=== PATIENT | male | born 1990 | race American Indian/Alaskan Native ===

== ENCOUNTER 2020-07-23 16:58 | Emergency (ER) | payer SELFPAY ==
[2020-07-23 17:44] VITALS: BP 136/77
--- NOTE | 2020-07-23 18:52 | Emergency Department Report ---
ED Abdominal Pain HPI - General Chief Complaint: Nausea/Vomiting/Diarrhea Stated Complaint: PUI COVID PUI?: No Time Seen by Provider: 07/23/20 18:42 Source: patient, EMS Mode of arrival: Ambulatory Limitations: No Limitations - History of Present Illness Initial Comments: Patient is a 30-year-old -Honduran male who comes to the ER via [facility] with a 2-day history of nausea vomiting and diarrhea. He endorses [employer]. Patient states that he has not had a cough. He states that he has had chills but no fever. He does not have a fever on arrival. Patient does not have tachycardia or hypotension. Patient states that he is on no home medications daily. Patient states he is on disability due to chronic left lower extremity pain secondary to surgeries when he was younger. Patient smokes and admits to marijuana use. He states that the marijuana has not helped his nausea and vomiting. Patient denies any history of diabetes, gastroparesis or other GI disease. He denies any recent exposure to COVID-19. Although patient is complaining of nausea and vomiting on arrival he is asking for water. When the nurse told him he cannot have water he was found drinking from the sink. Patient states his primary care doctor is at [facility]. We have no prior records for patient. -: Sudden, days(s) Location: diffuse Migration to: no migration Quality: cramping Consistency: constant Improves With: nothing Worsens With: nothing Associated Symptoms: nausea, vomiting, diarrhea, chills. denies: fever, constipation, dysuria, hematemesis, hematochezia, melena, hematuria, anorexia, syncope - Related Data Previous Rx's Medication Instructions Recorded Last Taken Type Ondansetron [Zofran Odt] 4 mg PO Q8HR PRN #10 tab.rapdis 07/23/20 Unknown Rx Allergies Allergy/AdvReac Type Severity Reaction Status Date / Time No Known Allergies Allergy Unverified 07/23/20 17:44 ED Review of Systems ROS: Stated complaint: PUI COVID Other details as noted in HPI Comment: All other systems reviewed and negative ED Past Medical Hx - Past Medical History Previous Medical History?: No - Surgical History Past Surgical History?: No - Family History Family history: no significant - Social History Smoking Status: Current Every Day Smoker Substance Use Type: Alcohol, Marijuana, Other - Medications Home Medications: Home Medications Medication Instructions Recorded Confirmed Last Taken Type Ondansetron [Zofran Odt] 4 mg PO Q8HR PRN #10 tab.rapdis 07/23/20 Unknown Rx ED Physical Exam - General Limitations: No Limitations General appearance: alert, in no apparent distress - Head Head exam: Present: atraumatic, normocephalic - Eye Eye exam: Present: normal appearance - ENT ENT exam: Present: mucous membranes moist - Neck Neck exam: Present: normal inspection - Respiratory Respiratory exam: Present: normal lung sounds bilaterally. Absent: respiratory distress - Cardiovascular Cardiovascular Exam: Present: regular rate, normal rhythm. Absent: systolic murmur, diastolic murmur, rubs, gallop - GI/Abdominal GI/Abdominal exam: Present: soft, normal bowel sounds - Rectal Rectal exam: Present: deferred - Extremities Exam Extremities exam: Present: normal inspection - Back Exam Back exam: Present: normal inspection - Neurological Exam Neurological exam: Present: alert, oriented X3 - Psychiatric Psychiatric exam: Present: normal affect, normal mood - Skin Skin exam: Present: warm, dry, intact, normal color. Absent: rash ED Course Vital Signs 07/23/20 17:41 Temperature 97.8 F Pulse Rate 64 Respiratory 18 Rate Blood Pressure 136/77 O2 Sat by Pulse 100 Oximetry - Reevaluation(s) Reevaluation #1: 07/23/20 22:56 Patient appears stronger on clinical exam. However he is still orthostatic on blood pressure evaluation and heart rate recheck. Therefore he is being given another l of normal saline. Patient is taking p.o. Reevaluation #2: 07/24/20 00:07 on reexam pt reports feeling better no n/v/d taking po VS improved ambulatory without complaint. asking to go home. ED Medical Decision Making - Lab Data Result diagrams: 07/23/20 18:54 07/23/20 18:54 - Radiology Data Radiology results: report reviewed, image reviewed interpreted by me: rubio bergeron - Medical Decision Making Vital Signs 07/23/20 17:41 Temperature 97.8 F Pulse Rate 64 Respiratory 18 Rate Blood Pressure 136/77 O2 Sat by Pulse 100 Oximetry Lab Results 07/23/20 07/23/20 07/23/20 Range/Units 18:54 18:54 20:12 WBC 13.3 H (4.5-11.0) K/mm3 RBC 4.80 (3.65-5.03) M/mm3 Hgb 13.8 (11.8-15.2) gm/dl Hct 42.9 (35.5-45.6) % MCV 89 (84-94) fl MCH 29 (28-32) pg MCHC 32 (32-34) % RDW 14.5 (13.2-15.2) % Plt Count 285 (140-440) K/mm3 Add Manual Diff Complete Total Counted 100 Seg Neuts % (Manual) 92.0 H (40.0-70.0) % Band Neutrophils % 0 % Lymphocytes % (Manual) 4.0 L (13.4-35.0) % Reactive Lymphs % (Man) 0 % Monocytes % (Manual) 4.0 (0.0-7.3) % Eosinophils % (Manual) 0 (0.0-4.3) % Basophils % (Manual) 0 (0.0-1.8) % Metamyelocytes % 0 % Myelocytes % 0 % Promyelocytes % 0 % Blast Cells % 0 % Nucleated RBC % Not Reportable Seg Neutrophils # Man 12.2 H (1.8-7.7) K/mm3 Band Neutrophils # 0.0 K/mm3 Lymphocytes # (Manual) 0.5 L (1.2-5.4) K/mm3 Abs React Lymphs (Man) 0.0 K/mm3 Monocytes # (Manual) 0.5 (0.0-0.8) K/mm3 Eosinophils # (Manual) 0.0 (0.0-0.4) K/mm3 Basophils # (Manual) 0.0 (0.0-0.1) K/mm3 Metamyelocytes # 0.0 K/mm3 Myelocytes # 0.0 K/mm3 Promyelocytes # 0.0 K/mm3 Blast Cells # 0.0 K/mm3 WBC Morphology Not Reportable Hypersegmented Neuts Not Reportable Hyposegmented Neuts Not Reportable Hypogranular Neuts Not Reportable Smudge Cells Not Reportable Toxic Granulation Not Reportable Toxic Vacuolation Not Reportable Dohle Bodies Not Reportable Pelger-Huet Anomaly Not Reportable Anastacio Rods Not Reportable Platelet Estimate Not Reportable Clumped Platelets Not Reportable Plt Clumps, EDTA Not Reportable Large Platelets Not Reportable Giant Platelets Not Reportable Platelet Satelliting Not Reportable Plt Morphology Comment Not Reportable RBC Morphology Not Reportable Dimorphic RBCs Not Reportable Polychromasia Not Reportable Hypochromasia Not Reportable Poikilocytosis Not Reportable Anisocytosis Rare Microcytosis Rare Macrocytosis Not Reportable Spherocytes Not Reportable Pappenheimer Bodies Not Reportable Sickle Cells Not Reportable Target Cells Not Reportable Tear Drop Cells Not Reportable Ovalocytes Not Reportable Helmet Cells Not Reportable [place] Bodies Not Reportable Laura Rings Not Reportable Lacey Cells Not Reportable Bite Cells Not Reportable Crenated Cell Not Reportable Elliptocytes 1+ Acanthocytes (Spur) Not Reportable Rouleaux Not Reportable Hemoglobin C Crystals Not Reportable Schistocytes Not Reportable Malaria parasites Not Reportable Kenny Bodies Not Reportable Hem Pathologist Commnt No Sodium 141 (137-145) mmol/L Potassium 4.3 (3.6-5.0) mmol/L Chloride 105.0 (98-107) mmol/L Carbon Dioxide 21 L (22-30) mmol/L Anion Gap 19 mmol/L BUN 8 L (9-20) mg/dL Creatinine 0.9 (0.8-1.3) mg/dL Estimated GFR > 60 ml/min BUN/Creatinine Ratio 9 % Glucose 115 H (75-100) mg/dL Calcium 11.1 H (8.4-10.2) mg/dL Total Bilirubin 0.90 (0.1-1.2) mg/dL AST 24 (5-40) units/L ALT 13 (7-56) units/L Alkaline Phosphatase 110 (35-129) units/L Total Protein 8.0 (6.3-8.2) g/dL Albumin 4.9 (3.9-5) g/dL Albumin/Globulin Ratio 1.6 % Urine Color Yellow (Yellow) Urine Turbidity Clear (Clear) Urine pH 9.0 H (5.0-7.0) Ur Specific [place] 1.027 (1.003-1.030) Urine Protein >500 (Negative) mg/dL Urine Glucose (UA) Neg (Negative) mg/dL Urine Ketones 80 (Negative) mg/dL Urine Blood Neg (Negative) Urine Nitrite Neg (Negative) Urine Bilirubin Neg (Negative) Urine Urobilinogen 2.0 (<2.0) mg/dL Ur Leukocyte Esterase Neg (Negative) Urine WBC (Auto) < 1.0 (0.0-6.0) /HPF Urine RBC (Auto) 6.0 (0.0-6.0) /HPF U Epithel Cells (Auto) < 1.0 (0-13.0) /HPF Urine Mucus 3+ /HPF labs noted UA noted with protein and ketones. Creatinine normal. Patient has had no vomiting or diarrhea while in the ER. xray noted 2L NS IV/zofran for n/v taking PO. 2100 patient is ambulatory in his room without difficulty. He is to receive a second liter of normal saline. 2200 remains orthostatic 2355 reports feeling better. taking po pt states he is ready to go home dc home with dc poc. Patient verbalizes understanding of discharge plan of care including medications diet activity and follow-up. Patient is ambulatory nontoxic and [id number] on discharge with no further nausea vomiting or diarrhea. After receiving fluids he feels better. - Differential Diagnosis gastroenteritis / ro covid Critical care attestation.: If time is entered above; I have spent that time in minutes in the direct care o f this critically ill patient, excluding procedure time. ED Disposition Clinical Impression: Gastroenteritis Disposition: DC-01 TO HOME OR SELFCARE Is pt being admited?: No Does the pt Need Aspirin: No Condition: Stable Instructions: Viral Gastroenteritis, Adult, [id number] Additional Instructions: good handwashing wear mask drink water and gatorade tomorrow bananas, rice, applesauce and toast then advance diet as tolerated you should follow up with pcp in 48 hour for reevaluation referral to local PCP below Prescriptions: Ondansetron [Zofran Odt] 4 mg PO Q8HR PRN #10 tab.rapdis PRN Reason: Vomiting Referrals: PRIMARY MD MELISSA [Primary Care Provider] - 3-5 Days JUNITO SWANSON MD [Staff Physician] - 3-5 Days Time of Disposition: 21:05
[2020-07-23] MEDS ORDERED: ONDANSETRON 4 MG ODT TAB PO ONE (18:54)
[2020-07-23 19:36] LABS: Hematocrit 42.9 % (35.5-45.6); Hemoglobin 13.8 gm/dl (11.8-15.2); Mean Corpuscular HGB Conc 32 % (32-34); Mean Corpuscular Volume 89 fl (84-94); Platelet Count 285 K/mm3 (140-440); Red Cell Distribution Width 14.5 % (13.2-15.2)
[2020-07-23 19:43] LABS: Alanine Aminotransferase 13 units/L (7-56); Albumin 4.9 g/dL (3.9-5); BUN/Creatinine Ratio 9; Blood Urea Nitrogen 8 mg/dL (9-20); Calcium 11.1 mg/dL (8.4-10.2); Hemolysis Index 76
[2020-07-23] MEDS ORDERED: SODIUM CHLORIDE 0.9% 1000 ML 1,000 ML IV ONE ×3 (19:51→22:52)
[2020-07-23 20:10] LABS: Anisocytosis RARE; Basophils % (Manual) 0 % (0.0-1.8); Eosinophils % (Manual) 0 % (0.0-4.3); Total Cells Counted 100
--- NOTE | 2020-07-23 20:17 | XRay Report ---
CHEST 2 VIEWS INDICATION / CLINICAL INFORMATION: chills. COMPARISON: None available. FINDINGS: SUPPORT DEVICES: None. HEART / MEDIASTINUM: No significant abnormality. LUNGS / PLEURA: No significant pulmonary or pleural abnormality. No pneumothorax. ADDITIONAL FINDINGS: No significant additional findings. IMPRESSION: 1. No acute findings. Signer Name: Eder Farrell MD Signed: 07/23/2020 8:13 PM Workstation Name: [id number]
[2020-07-23 20:35] LABS: Bilirubin,Urine NEG (Negative); Blood,Urine NEG (Negative); Color,Urine Yellow (Yellow); Mucus,Urine 3+ /HPF; WBC,Urine < 1.0 /HPF (0.0-6.0)
[2020-07-23 20:40] LABS: Protein,Urine >500 mg/dL (Negative)
[2020-07-23] MEDS ORDERED: ONDANSETRON 4 MG/2 ML INJ IV ONE (20:53)
== END 2020-07-24 00:05 | disposition home or self-care (01) ==
LOC: ED 16:58
DX: K52.9 Noninfective gastroenteritis and colitis, unspecified (principal); F17.200 Nicotine dependence, unspecified, uncomplicated; F12.10 Cannabis abuse, uncomplicated; Z79.899 Other long term (current) drug therapy
CPT/HCPCS: 36415; 71046; 80053; 81001; 83690; 85007; 85025; 96361; 96374; 99284; J2405; J7030; Q0162

== ENCOUNTER 2020-07-25 23:52 | Emergency (ER) | payer SELFPAY ==
[2020-07-26 01:18] LABS: Basophils % (Auto) 0.5 % (0.0-1.8); Eosinophils % (Auto) 0.3 % (0.0-4.3); Hematocrit 42.1 % (35.5-45.6); Lymphocytes # (Auto) 1.6 K/mm3 (1.2-5.4); Lymphocytes % (Auto) 18.5 % (13.4-35.0); Mean Corpuscular HGB Conc 33 % (32-34); Mean Corpuscular Volume 88 fl (84-94); Monocytes # (Auto) 1.2 K/mm3 (0.0-0.8); Monocytes % (Auto) 13.8 % (0.0-7.3); Platelet Count 310 K/mm3 (140-440); Red Blood Count 4.78 M/mm3 (3.65-5.03); Red Cell Distribution Width 14.3 % (13.2-15.2)
[2020-07-26 01:42] LABS: Alanine Aminotransferase 12 units/L (7-56); Albumin 4.7 g/dL (3.9-5); BUN/Creatinine Ratio 11; Blood Urea Nitrogen 11 mg/dL (9-20); Calcium 10.5 mg/dL (8.4-10.2); Hemolysis Index 13
[2020-07-26 02:03] LABS: Bilirubin,Urine NEG (Negative); Blood,Urine SM (Negative); Color,Urine Yellow (Yellow); Mucus,Urine 2+ /HPF
[2020-07-26] MEDS ORDERED: ONDANSETRON 4 MG/2 ML INJ IV ONE (03:04)
[2020-07-26] MEDS ORDERED: KETOROLAC 30 MG/1 ML INJ IV ONE (03:04)
[2020-07-26] MEDS ORDERED: FAMOTIDINE 20 MG/2 ML INJ IV ONE (03:04)
[2020-07-26] MEDS ORDERED: SODIUM CHLORIDE 0.9% 1000 ML 1,000 ML IV ONE (03:04)
--- NOTE | 2020-07-26 04:11 | Cat Scan Report ---
CT ABDOMEN AND PELVIS WITH CONTRAST INDICATION / CLINICAL INFORMATION: Abdominal pain. TECHNIQUE: Axial CT images were obtained through the abdomen and pelvis after 100 mL Omnipaque [address] scans at this location are performed using CT dose reduction for ALARA by means of automated exposure control. COMPARISON: None available. FINDINGS: LOWER CHEST: No significant abnormality. LIVER: There is a nonspecific perfusional variant noted in the left hepatic lobe and a small focus al lorraine the periphery of the right hepatic lobe, likely of no clinical significance. BILIARY SYSTEM: No significant abnormality. PANCREAS: No significant abnormality. SPLEEN: No significant abnormality. ADRENALS: No significant abnormality. KIDNEYS and URETERS: No significant abnormality. STOMACH / BOWEL: No significant abnormality. The appendix is normal. PERITONEUM: No free fluid. No free air. No fluid collection. LYMPH NODES: No significant adenopathy. VASCULAR STRUCTURES: No significant abnormality. URINARY BLADDER: No significant abnormality. REPRODUCTIVE ORGANS: No significant abnormality. ADDITIONAL FINDINGS: None. SKELETAL SYSTEM: Prior internal fixation of the left proximal femur. IMPRESSION: 1. No acute process identified within the abdomen or pelvis to account for patient's abdominal pain. Signer Name: Marielle Leyva MD Signed: 07/26/2020 4:07 AM Workstation Name: [id number]
--- NOTE | 2020-07-26 05:28 | Emergency Department Report ---
ED Abdominal Pain HPI - General Chief Complaint: Abdominal Pain Stated Complaint: NAUSEA Source: patient Mode of arrival: Ambulatory Limitations: No Limitations - History of Present Illness Initial Comments: Patient is a 30-year-old -Beninese male with no past medical history presents to the ED with complaint of acute onset persistent nausea, vomiting, diffuse abdominal pain and lack of appetite for the last 4 days. Patient was initially evaluated in this ED 3 days ago and tested for COVID-19 viral infection which has since returned negative. Patient states that he was discharged home on antiemetics but states that he has not been able to keep anything down because of intractable nausea and vomiting and worsening abdominal pain. Patient denies diarrhea, dizziness, syncope, chest pain, cough, shortness of breath, dysuria, urinary frequency and urgency, testicular pain, back pain, change in vision or sore throat. MD Complaint: abdominal pain, other (Nausea and vomiting) -: Sudden, days(s) (4) Location: diffuse Radiation: none Migration to: no migration Severity: severe Severity scale (0 -10): 7 Quality: cramping, aching Consistency: constant Improves With: nothing Worsens With: eating, vomiting Context: possible food poisoning Associated Symptoms: denies other symptoms, nausea, vomiting, chills, anorexia. denies: diarrhea, fever, constipation, dysuria, hematemesis, melena - Related Data Previous Rx's Medication Instructions Recorded Last Taken Type Dicyclomine [Bentyl] 20 mg PO Q6H PRN #30 tablet 07/26/20 Unknown Rx Famotidine [Pepcid] 20 mg PO BID #60 tablet 07/26/20 Unknown Rx Ondansetron [Zofran ODT TAB] 4 mg PO Q6HR PRN #20 tab.rapdis 07/26/20 Unknown Rx Allergies Allergy/AdvReac Type Severity Reaction Status Date / Time No Known Allergies Allergy Unverified 07/23/20 17:44 ED Review of Systems ROS: Stated complaint: NAUSEA Other details as noted in HPI Constitutional: denies: chills, fever Eyes: denies: eye pain, eye discharge, vision change ENT: denies: ear pain, throat pain Respiratory: denies: cough, shortness of breath, wheezing Cardiovascular: denies: chest pain, palpitations Endocrine: no symptoms reported Gastrointestinal: abdominal pain, nausea, vomiting. denies: diarrhea Genitourinary: denies: urgency, dysuria Musculoskeletal: denies: back pain, joint swelling, arthralgia Skin: denies: rash, lesions Neurological: denies: headache, weakness, paresthesias Psychiatric: denies: anxiety, depression Hematological/Lymphatic: denies: easy bleeding, easy bruising ED Past Medical Hx - Surgical History Past Surgical History?: Yes Additional Surgical History: Left leg - Social History Smoking Status: Current Every Day Smoker Substance Use Type: Marijuana - Medications Home Medications: Home Medications Medication Instructions Recorded Confirmed Last Taken Type Dicyclomine [Bentyl] 20 mg PO Q6H PRN #30 tablet 07/26/20 Unknown Rx Famotidine [Pepcid] 20 mg PO BID #60 tablet 07/26/20 Unknown Rx Ondansetron [Zofran ODT TAB] 4 mg PO Q6HR PRN #20 tab.rapdis 07/26/20 Unknown Rx ED Physical Exam - General Limitations: No Limitations General appearance: alert, in no apparent distress - Head Head exam: Present: atraumatic, normocephalic, normal inspection - Eye Eye exam: Present: normal appearance, PERRL, EOMI Pupils: Present: normal accommodation - ENT ENT exam: Present: normal exam, normal orophraynx, mucous membranes moist, TM's normal bilaterally, normal external ear exam - Neck Neck exam: Present: normal inspection, full ROM. Absent: tenderness - Respiratory Respiratory exam: Present: normal lung sounds bilaterally. Absent: respiratory distress, wheezes, rales, chest wall tenderness, accessory muscle use, prolonged expiratory - Cardiovascular Cardiovascular Exam: Present: regular rate, normal rhythm, normal heart sounds. Absent: systolic murmur, diastolic murmur, rubs, gallop - GI/Abdominal GI/Abdominal exam: Present: soft, tenderness (Palpable mildly diffuse abdominal tenderness), normal bowel sounds. Absent: guarding, rebound, hyperactive bowel sounds, hypoactive bowel sounds, organomegaly - Extremities Exam Extremities exam: Present: normal inspection, full ROM, normal capillary refill - Back Exam Back exam: Present: normal inspection, full ROM. Absent: tenderness, CVA tenderness (R), CVA tenderness (L), muscle spasm, paraspinal tenderness, vertebral tenderness - Neurological Exam Neurological exam: Present: alert, oriented X3, CN II-XII intact, normal gait, reflexes normal - Psychiatric Psychiatric exam: Present: normal affect, normal mood - Skin Skin exam: Present: warm, dry, intact, normal color. Absent: rash ED Course Vital Signs 07/26/20 01:00 Temperature 98.7 F Pulse Rate 82 Respiratory 18 Rate Blood Pressure 121/76 [Left] O2 Sat by Pulse 99 Oximetry ED Medical Decision Making - Lab Data Result diagrams: 07/26/20 01:00 07/26/20 01:00 - Radiology Data Radiology results: report reviewed, image reviewed Findings [facility] [address] [place] [address] Cat Scan Report Signed Patient: BROCK GORDON MR#: [id number] : 1990 Acct:[id number] Age/Sex: 30 / M ADM Date: 07/25/20 Loc: ED Attending Dr: Ordering Physician: CHAS RODRIGUEZ Date of Service: 07/26/20 Procedure(s): CT abdomen pelvis w con Accession Number(s): [id number] cc: CHAS RODRIGUEZ CT ABDOMEN AND PELVIS WITH CONTRAST INDICATION / CLINICAL INFORMATION: Abdominal pain. TECHNIQUE: Axial CT images were obtained through the abdomen and pelvis after 100 mL Omnipaque [address] scans at this location are performed using CT dose reduction for ALARA by means of automated exposure control. COMPARISON: None available. FINDINGS: LOWER CHEST: No significant abnormality. LIVER: There is a nonspecific perfusional variant noted in the left hepatic lobe and a small focus along the periphery of the right hepatic lobe, likely of no clinical significance. BILIARY SYSTEM: No significant abnormality. PANCREAS: No significant abnormality. SPLEEN: No significant abnormality. ADRENALS: No significant abnormality. KIDNEYS and URETERS: No significant abnormality. STOMACH / BOWEL: No significant abnormality. The appendix is normal. PERITONEUM: No free fluid. No free air. No fluid collection. LYMPH NODES: No significant adenopathy. VASCULAR STRUCTURES: No significant abnormality. URINARY BLADDER: No significant abnormality. REPRODUCTIVE ORGANS: No significant abnormality. ADDITIONAL FINDINGS: None. SKELETAL SYSTEM: Prior internal fixation of the left proximal femur. IMPRESSION: 1. No acute process identified within the abdomen or pelvis to account for patient's abdominal pain. Signer Name: Marielle Leyva MD Signed: 07/26/2020 4:07 AM Workstation Name: [id number] Transcribed By: C Dictated By: Marielle Leyva MD Electronically Authenticated By: Marielle Leyva MD Signed Date/Time: 07/26/20406 DD/ 1 TD/TT: - Medical Decision Making This is a 30-year-old -Beninese male with no past medical history presents to the ED with complaint of acute onset persistent nausea, vomiting, diffuse abdominal pain and lack of appetite for the last 4 days. Patient was initially evaluated in this ED 3 days ago and tested for COVID-19 viral infection which has since returned negative. Patient states that he was discharged home on antiemetics but states that he has not been able to keep anything down because of intractable nausea and vomiting and worsening abdominal pain. In the ED, patient is alert and oriented x3 and is not in distress. Patient was treated for nausea and vomiting and also given antacids and pain medications. Abdomen pelvis CT scan with contrast showed no acute abnormalities. Lab test results were reviewed and are all nonactionable. On reevaluation, patient has not had any nausea or vomiting while in the ED and his pain is well controlled medications. Patient was discharged home on medications and advised to follow-up with his primary care physician in 3 to 5 days for reevaluation. Patient was also advised to maintain a clear liquid diet for 12 to 24 hours while taking antiemetics and pain medication. Patient was advised to return to the ED immediately if symptoms get worse. - Differential Diagnosis Gastroenteritis; GERD; appendicitis; gastritis; UTI; kidney stones; colitis Critical care attestation.: If time is entered above; I have spent that time in minutes in the direct care of this critically ill patient, excluding procedure time. ED Disposition Clinical Impression: Viral gastroenteritis, Nausea and vomiting in adult patient, Abdominal pain in male GERD (gastroesophageal reflux disease) Qualifiers: Esophagitis presence: without esophagitis Qualified Code(s): K21.9 - Gastro- esophageal reflux disease without esophagitis Disposition: DC-01 TO HOME OR SELFCARE Is pt being admited?: No Does the pt Need Aspirin: No Condition: Stable Instructions: Viral Gastroenteritis, Adult, [id number], Abdominal Pain, Adult, [id number], Nausea and Vomiting, Adult, [id number], Gastroesophageal Reflux Disease, Adult, [id number], Viral Illness, Adult Additional Instructions: All lab test results are unremarkable. Abdomen pelvis CT scan with contrast shows no acute abnormalities. Your symptoms are likely viral in etiology. Therefore maintain a clear liquid diet for 12 to 24 hours, take medications as advised, follow-up with your primary care physician in 3 to 5 days for reevaluation or return to the ED immediately if symptoms get worse. Prescriptions: Dicyclomine [Bentyl] 20 mg PO Q6H PRN #30 tablet PRN Reason: Abdominal pain Famotidine [Pepcid] 20 mg PO BID #60 tablet Ondansetron [Zofran ODT TAB] 4 mg PO Q6HR PRN #20 tab.rapdis PRN Reason: Vomiting Referrals: [facility] [Provider Group] - 3-5 Days Time of Disposition: 05:32 Print Language: IRANIAN
[2020-07-26 06:54] VITALS: BP 115/69
== END 2020-07-26 05:52 | disposition home or self-care (01) ==
LOC: ED 23:52
DX: K21.9 Gastro-esophageal reflux disease without esophagitis (principal); A08.39 Other viral enteritis
CPT/HCPCS: 36415; 74177; 80053; 81001; 83690; 85025; 96361; 96374; 96375; 99284; J1885; J2405; J7030; Q9967